=== PATIENT | female | born 1960 | race Hispanic/Latino ===

== ENCOUNTER → 2020-06-24 | Day surgery (SDC) | payer OTHER ==
[~2020-06-24] MED LIST: ASPIRIN81 MG PO; FENTANYL CITRATE/PF 100MCG/2 ML INJ ONE; LIDOCAINE HCL 2% LOCAL INJ 5 ML SDV VIAL INJ ONE; LIPITOR10 MG PO; METFORMIN HCL500 MG PO; MIDAZOLAM HCL 2 MG/2 ML VIAL ONE; PROPOFOL IV EMULSION 10 MG/ML 20 ML VIAL ONE; ULTRAM 50MG50 MG PO; VIT D PO; ZESTRIL10 MG PO
[2020-06-24 09:00] VITALS: BP 116/74
== END | disposition home or self-care (01) ==
LOC: OR 05:55
PROVIDERS: ATTEND Internal Medicine Gastroenterology
DX: K20.90 Esophagitis, unspecified without bleeding (principal); K29.70 Gastritis, unspecified, without bleeding; K21.9 Gastro-esophageal reflux disease without esophagitis; Z98.890 Other specified postprocedural states; K22.8 Other specified diseases of esophagus; K59.1 Functional diarrhea; K62.89 Other specified diseases of anus and rectum; K62.5 Hemorrhage of anus and rectum; I10 Essential (primary) hypertension; E11.9 Type 2 diabetes mellitus without complications; F41.0 Panic disorder [episodic paroxysmal anxiety]; Z01.810 Encounter for preprocedural cardiovascular examination; Z01.812 Encounter for preprocedural laboratory examination; Z20.822 Contact with and (suspected) exposure to COVID-19; Z87.19 Personal history of other diseases of the digestive system
CPT/HCPCS: 36415; 43239; 82948; 93005; J2001; J2250; J2704; J3010; U0002

== ENCOUNTER → 2024-03-27 | Day surgery (SDC) | payer OTHER ==
[~2024-03-27] MED LIST changes: +HYOSCYAMINE SULFATE 0.5 MG/ML INJ ONE; -LIDOCAINE HCL 2% LOCAL INJ 5 ML SDV VIAL INJ ONE; +METOCLOPRAMIDE HCL 10 MG/2ML VIAL ONE; -MIDAZOLAM HCL 2 MG/2 ML VIAL ONE; +NAPROSYN500 MG PO; +PROPOFOL IV EMULSION 50 ML IV ONE
[2024-03-27] MEDS: LACTATED RINGER'S 1,000 ML ONE (15:41)
[2024-03-27 17:13] VITALS: TEMP 97.8
[2024-03-27 17:30] VITALS: BP 131/68; PULSE 89; RESP 16; O2SAT 99
== END | disposition home or self-care (01) ==
LOC: OR 14:23
PROVIDERS: ATTEND Internal Medicine Gastroenterology
DX: K29.60 Other gastritis without bleeding (principal); Z86.0100 Personal history of colon polyps, unspecified; K25.9 Gastric ulcer, unspecified as acute or chronic, without hemorrhage or perforation; K31.84 Gastroparesis; K21.9 Gastro-esophageal reflux disease without esophagitis; K59.09 Other constipation; K57.30 Diverticulosis of large intestine without perforation or abscess without bleeding; K64.8 Other hemorrhoids; K76.0 Fatty (change of) liver, not elsewhere classified; Z71.3 Dietary counseling and surveillance; E11.9 Type 2 diabetes mellitus without complications; I10 Essential (primary) hypertension; Z71.89 Other specified counseling; E78.5 Hyperlipidemia, unspecified; M54.2 Cervicalgia; M54.9 Dorsalgia, unspecified; F41.9 Anxiety disorder, unspecified; F32.A Depression, unspecified; Z01.810 Encounter for preprocedural cardiovascular examination; Z79.84 Long term (current) use of oral hypoglycemic drugs; Z79.899 Other long term (current) drug therapy; Z79.82 Long term (current) use of aspirin; Z68.29 Body mass index [BMI] 29.0-29.9, adult; Z98.890 Other specified postprocedural states
CPT/HCPCS: 43239; 45378; 93005; J1980; J2470; J2704 ×2; J2765; J3010; J7121

== ENCOUNTER → 2024-05-10 | Outpatient (REF) | payer OTHER ==
[~2024-05-10] MED LIST changes: -FENTANYL CITRATE/PF 100MCG/2 ML INJ ONE; -HYOSCYAMINE SULFATE 0.5 MG/ML INJ ONE; -METOCLOPRAMIDE HCL 10 MG/2ML VIAL ONE; -PROPOFOL IV EMULSION 10 MG/ML 20 ML VIAL ONE; -PROPOFOL IV EMULSION 50 ML IV ONE
== END ==
LOC: DX 08:19
PROVIDERS: ATTEND Nurse Practitioner
DX: K29.70 Gastritis, unspecified, without bleeding (principal); R14.0 Abdominal distension (gaseous); I10 Essential (primary) hypertension; Z68.30 Body mass index [BMI] 30.0-30.9, adult; Z86.0100 Personal history of colon polyps, unspecified
CPT/HCPCS: 74280

== ENCOUNTER → 2024-05-17 | Outpatient (REF) | payer OTHER | LOC: NM 07:43 | PROVIDERS: ATTEND Nurse Practitioner | DX: K29.70 Gastritis, unspecified, without bleeding (principal); R14.0 Abdominal distension (gaseous); Z86.0100 Personal history of colon polyps, unspecified | CPT/HCPCS: 78264; A9541 ==

== ENCOUNTER 2024-07-14 15:02 | Emergency (ER) | payer OTHER ==
[~2024-07-14] VITALS: Ht 147.3 cm; Wt 71.2 kg
[2024-07-14 15:44] VITALS: PULSE 97; RESP 18; TEMP 98.1; O2SAT 98
[2024-07-14 16:04] LABS: BASOPHILS % 0.4 % (0.0-1.0); EOSINOPHILS # (AUTO) 0.2 (0.0-0.4); EOSINOPHILS % 2.3 % (0.0-6.0); HEMATOCRIT 35.3 % (34.2-44.1); HEMOGLOBIN 11.6 g/dL (12.0-16.0); LYMPHOCYTES # (AUTO) 1.6 (1.0-3.2); LYMPHOCYTES % 16.5 % (18.0-39.1); MEAN CORPUSCULAR HEMOGLOBIN 28.5 pg (28-32); MEAN CORPUSCULAR HGB CONC 32.9 g/dL (31-35); MEAN CORPUSCULAR VOLUME 86.7 fL (81-99); MONOCYTES # (AUTO) 0.6 (0.2-0.8); MONOCYTES % 5.8 % (4.4-11.3); NEUTROPHILS # (AUTO) 7.2 (2.1-6.9); NEUTROPHILS % 74.7 % (38.7-80.0); PLATELET COUNT 302 x10e3/uL (140-360); RED BLOOD COUNT 4.07 x10e6/uL (3.6-5.1); RED CELL DISTRIBUTION WIDTH 12.4 % (11.7-14.4); WHITE BLOOD COUNT 9.58 x10e3/uL (4.8-10.8)
[2024-07-14 16:32] LABS: ALBUMIN 4.3 g/dL (3.5-5.0); ALBUMIN/GLOBULIN RATIO 1.7 (0.8-2.0); ANION GAP 15.1 mmol/L (8-16); BILIRUBIN,TOTAL 0.3 mg/dL (0.2-1.2); CALCIUM 9.4 mg/dL (8.4-10.2); CREATININE, SERUM 0.75 mg/dL (0.57-1.11); POTASSIUM 4.1 mmol/L (3.5-5.1); TOTAL PROTEIN 6.9 g/dL (6.5-8.1)
[2024-07-14 16:38] LABS: TROPONIN I 0.016 ng/mL (0-0.300)
[2024-07-14 16:40] LABS: INR 0.87; PROTHROMBIN TIME 12.4 seconds (11.9-14.5)
[2024-07-14 16:41] LABS: PARTIAL THROMBOPLASTIN TIME 30.9 seconds (23.8-35.5)
[2024-07-14 17:44] VITALS: BP 131/76; PULSE 87; RESP 20; TEMP 98.7
== END 2024-07-14 17:47 | disposition home or self-care (01) ==
LOC: ER 16:00
DX: R07.89 Other chest pain (principal); I10 Essential (primary) hypertension; E11.65 Type 2 diabetes mellitus with hyperglycemia; E78.5 Hyperlipidemia, unspecified; K21.9 Gastro-esophageal reflux disease without esophagitis
CPT/HCPCS: 36415; 71045; 80053; 82550; 84484; 85025; 85610; 85730; 93005; 99284